=== PATIENT | female | born 1980 | race Asian ===

== ENCOUNTER 2022-07-02 09:05 | Day surgery (SDC) | payer OTHER ==
[~2022-07-02] VITALS: Ht 152.4 cm; Wt 67.1 kg
[2022-07-02] MEDS ORDERED: fentaNYL citrate 0.05 MG/ML VIAL ONE (11:05)
[2022-07-02] MEDS ORDERED: MIDAZOLAM 2 MG/2 ML VIAL ONE (11:05)
[2022-07-02] MEDS ORDERED: MIDAZOLAM 2 MG/2 ML VIAL IVP ONE (11:55)
== END 2022-07-02 12:20 | disposition home or self-care (01) ==
LOC: MDS 09:05 → MMU 09:11 → MDS 12:20
PROVIDERS: ATTEND Internal Medicine Gastroenterology
DX: R13.10 Dysphagia, unspecified (principal); I10 Essential (primary) hypertension; E11.9 Type 2 diabetes mellitus without complications; E78.00 Pure hypercholesterolemia, unspecified; E03.9 Hypothyroidism, unspecified; Z90.49 Acquired absence of other specified parts of digestive tract; F17.210 Nicotine dependence, cigarettes, uncomplicated; Z79.84 Long term (current) use of oral hypoglycemic drugs; Z79.899 Other long term (current) drug therapy; Z20.822 Contact with and (suspected) exposure to COVID-19
CPT/HCPCS: 43239; 81025; 87426; J2250; J3010

== ENCOUNTER 2024-03-09 09:50 | Day surgery (SDC) | payer OTHER ==
[~2024-03-09] VITALS: Ht 152.4 cm; Wt 67.1 kg
[2024-03-09] MEDS ORDERED: fentaNYL citrate 0.05 MG/ML VIAL ONE (11:48)
[2024-03-09] MEDS ORDERED: MIDAZOLAM 2 MG/2 ML VIAL ONE (11:49)
[2024-03-09] MEDS: MIDAZOLAM 2 MG/2 ML VIAL IVP ONE (11:55)
[2024-03-09] MEDS: fentaNYL citrate 0.05 MG/ML VIAL IVP ONE (11:56)
[2024-03-09] MEDS: LIDOCAINE 2% 100 MG/5 ML UJET TP ONE (12:02)
== END 2024-03-09 13:32 | disposition home or self-care (01) ==
LOC: MDS 09:50 → MMU 09:52 → MDS 13:32
PROVIDERS: ATTEND Internal Medicine Gastroenterology
DX: Z12.11 Encounter for screening for malignant neoplasm of colon (principal); I10 Essential (primary) hypertension; E11.9 Type 2 diabetes mellitus without complications; E03.9 Hypothyroidism, unspecified; Z90.49 Acquired absence of other specified parts of digestive tract; Z98.891 History of uterine scar from previous surgery; Z88.8 Allergy status to other drugs, medicaments and biological substances; Z79.899 Other long term (current) drug therapy; Z98.890 Other specified postprocedural states
CPT/HCPCS: 45378; 82948; J2250; J3010